=== PATIENT | female | born 1995 | race Two or more races ===

== ENCOUNTER 2025-04-01 13:41 | Inpatient (IN) | payer SELFPAY ==
[2025-04-01] VITALS (33 sets, daily range): BP systolic 108–121; BP diastolic 67–83; PULSE 93–224; RESP 14–18; TEMP 36.6–37.4; O2SAT 80–100; BMI 29.2
[2025-04-01] MEDS: Oxytocin 15 Units/NS 250ml 15 UNITS/250 ML IV.SOLN 83 UNITS IV (14:05)
[2025-04-01] MEDS: Lidocaine 1% (20 ml mdv) 20 ML Vial INFILT (14:46)
--- NOTE | 2025-04-01 14:51 | PCM.HP.OB ---
HPI - General General Date of Admission: 04/01/25 Date of Service: 04/01/25 Chief Complaint: Term intrauterine and advanced labor desires pain medication HPI Narrative LONI DEVI, is a 29 F [id number] who presents by squad from home. Patient has been cared for by a relay man and is 41 weeks 4 days gestation and has been pushing for about 4 hours. Meconium stained fluid is noted. Patient indicates that her care has been uneventful to this point. Maternal Data Information Final DEISY: 03/21/25 Gestational age: 41 weeks 4 days PFSH PFSH Home Medications ?Medication ?Instructions ?Recorded ?Last Taken ?Type vit no.95-ferrous 1 tab PO DAILY 04/01/25 03/30/25 08:00 History fumarate 28 mg-folic acid 800 mcg 1 TAB tablet () Allergy/AdvReac Type Severity Reaction Status Date / Time No Known Allergies Allergy Verified 04/01/25 14:27 no surgical history Vital Signs Vital Signs Vital Signs: 04/01/25 14:17 04/01/25 14:17 04/01/25 14:17 Pulse Rate 104 H Blood Pressure 116/73 BP Systolic 116 BP Diastolic 73 Pulse Ox 97 04/01/25 14:25 04/01/25 14:25 04/01/25 14:26 Pulse Rate 224 H 103 H Blood Pressure BP Systolic BP Diastolic Pulse Ox 80 04/01/25 14:26 04/01/25 14:31 04/01/25 14:31 Pulse Rate 111 H Blood Pressure 116/72 BP Systolic 116 BP Diastolic 72 Pulse Ox 100 04/01/25 14:31 04/01/25 14:36 04/01/25 14:36 Pulse Rate 101 H Blood Pressure BP Systolic BP Diastolic Pulse Ox 99 100 04/01/25 14:41 04/01/25 14:41 04/01/25 14:46 Pulse Rate 106 H 101 H Blood Pressure BP Systolic BP Diastolic Pulse Ox 98 04/01/25 14:46 04/01/25 14:47 04/01/25 14:47 Pulse Rate 101 H Blood Pressure 121/73 H BP Systolic 121 BP Diastolic 73 Pulse Ox 98 Weight Weight: 170 lb Body Mass Index (BMI) 29.2 Physical Exam Const oriented x3 Constitutional Narrative: Patient in active labor. General Appearance: cooperative Exam Limitations: no limitations HEENT normocephalic Neck full ROM Resp normal respiratory effort and no retractions Cardio regular rate GI non-tender and non-distended Narrative: Size appears appropriate for gestational age Manual OB Exam: estimated gestational size, presentation cephalic and dilated Complete Uterus Palpation: uterus fundus Skin no rashes or lesions noted Neuro moves all extremities Labs Labs Labs: No Data to Display Patient indicates she has A positive Assessment & Plan (1) Prolonged third stage of labor: PLAN: Plan Patient presented by squad and delivered approximately 10 minutes after arriving on labor delivery. Minimal care. Will draw balance of labs. See delivery note.
--- NOTE | 2025-04-01 15:03 | OB.VAGDELI_ITS ---
Vaginal Delivery Maternal Presentation Maternal Presentation: Active Labor Maternal Presentation: Presented by squad with a drafter automotive design layout from home. She had been pushing for about 4 hours and was requesting pain medication. Vaginal Delivery Information Procedure Performed: Spontaneous Vaginal Delivery Surgeon/Practitioner: Haider Diaz Date of Procedure: 04/01/25 Pre-Procedure Diagnosis: IUP, Prolonged Third Stage of Labor Post-Procedure Diagnosis: IUP, Prolonged Third Stage of Labor Type of anesthesia: Local with 1% Lidocaine Special Medications: IM and IV pitocin, Methergine after delivery Estimated Blood Loss: 250 cc Time of Delivery: 13:56 Findings Description of procedure: Spontaneous vaginal delivery of a viable male with Apgars of 7/9 from an occiput anterior presentation with thick meconium fluid and normal meconium stained three-vessel placenta. Cord entanglement noted with the cord tightly stretched over the shoulders and between the legs. No episiotomy. First-degree midline laceration repaired with 3-0 Rapide suture under local. Cord gases collected. Pediatrics present for delivery (Dr. Silverman). Delivery physician: Haider Diaz MD. Procedure findings: Viable male infant with Apgars of 7/9 from an occiput anterior presentation with thick meconium fluid and normal meconium stained three-vessel placenta. Presentation: Vertex Amniotic Membrane Rupture Type: Spontaneous Amniotic Fluid Description: Thick meconium Placental Delivery Description: Spontaneous Placenta Disposition: [facility] Specimen collected: Yes Description of specimen(s) removed: Placenta to [facility] Cord Vessel Description: 3 Vessels Cord Entanglement: Other (Entangled around shoulder and between legs tight) Nuchal Cord Compression: With compression Cord Gases: ABG and VBG Infant A Gender: Male (1 minute): 7 (5 minute): 9 Post Vaginal Deli Medications given after delivery: IV Pitocin, IM Pitocin and IM Methergin Episiotomy Description: None Laceration: Midline and 1st degree Complication Complications: No
[2025-04-01 16:53] LABS: Hematocrit 40.1 % (37-47); Hemoglobin 14.0 g/dL (12.0-15.0); Immature Granulocytes Count 0.170 X10^3/uL (0.0-0.0); Mean Corp Hgb Conc 34.9 g/dL (32-36); Mean Corpuscular Volume 86.4 fL (81-99); Mean Platelet Vol. 10.7 fl (6.2-12.0); NRBC Flagged by Analyzer 0 % (0-5); POSITIVE DIFFERENTIAL YES; Platelet Count 179 K/mm3 (150-450); RBC Distribution Width CV 14.1 % (11.6-14.6); RBC Distribution Width SD 44.3 fl (35.1-43.9); Red Blood Count 4.64 M/mm3 (4.2-5.4); White Blood Count 23.5 K/mm3 (4.4-11.0)
[2025-04-01 17:08] LABS: Differential Indicated SCAN CRITERIA MET
[2025-04-01 17:21] LABS: AST(SGOT) 53 U/L (<=31); Alanine Aminotransfer ALT/SGPT 13 U/L (<=34); Albumin, Serum 3.7 g/dL (3.5-5.0); Alkaline Phosphatase 129 U/L (35-104); Anion Gap 16 (5-15); BUN 9 mg/dL (4-19); BUN/Creat Ratio 14.9 RATIO (10-20); Calcium,Total 9.1 mg/dL (7.6-11.0); Carbon Dioxide 13.5 mmol/L (21.0-32.0); Chloride 101 mmol/L (98-108); Estimated Creatinine Clearance 146.36 ml/min (50-250); Globulin 2.8 g/dL (2.2-4.2); Glucose 152 mg/dL (70-99); Potassium 3.7 mmol/L (3.3-5.1)
[2025-04-01 20:08] LABS: Differential Comment SCANNED
[2025-04-02 01:10] VITALS: BP 110/79; PULSE 109; RESP 16; TEMP 36.6; O2SAT 99
[2025-04-02 04:30] VITALS: BP 106/79; PULSE 99; RESP 16; TEMP 36.8; O2SAT 98
[2025-04-02 06:07] LABS: Hematocrit 36.0 % (37-47); Hemoglobin 12.3 g/dL (12.0-15.0); Immature Granulocytes Count 0.080 X10^3/uL (0.0-0.0); Mean Corp Hgb Conc 34.2 g/dL (32-36); Mean Corpuscular Volume 87.6 fL (81-99); Mean Platelet Vol. 10.8 fl (6.2-12.0); NRBC Flagged by Analyzer 0 % (0-5); Platelet Count 156 K/mm3 (150-450); RBC Distribution Width CV 14.4 % (11.6-14.6); RBC Distribution Width SD 46.2 fl (35.1-43.9); Red Blood Count 4.11 M/mm3 (4.2-5.4); White Blood Count 16.0 K/mm3 (4.4-11.0)
[2025-04-02] MEDS: Senna/Docusate Sodium 1 Tablet PO (09:25)
--- NOTE | 2025-04-02 11:58 | DS.PCM_ITS ---
Providers Date of Admission: 04/01/25 Date of Discharge: 04/02/25 Reason For Visit: LABOR AND DELIVERY Diagnosis Discharge Diagnosis (1) Prolonged third stage of labor: Status: Acute Code(s): O63.9 - Long labor, unspecified Plan: Doing well day #1 without complaints. Minimal vaginal bleeding reported. No fevers. White count decreased from 23.5 to approximately 16. Breast-feeding going well. Wants to go home today. Medications at Discharge Home Medications vit no.95-ferrous fumarate 28 mg-folic acid 800 mcg tablet () 1 tab PO DAILY 04/01/25 Hospital Course Summary of Care Provided Hospital Course: Patient arrived by squad with display maker. The patient had been in labor for approximately 3 days, had been complete for 7 to 8 hours and had pushed for more than 4 hours and was requesting pain medication. She was admitted and almost immediately had a routine spontaneous vaginal delivery. the patient did well demonstrating a stable hemoglobin and diminishing white count. Pediatrics okay with baby going home after 24 hours. Weight / BMI Weight Weight: 170 lb Body Mass Index (BMI) 29.2 ABG / Lab / Microbiology Data 04/02/25 05:45 04/01/25 16:30 Laboratory: Laboratory Results - last 24 hr 04/01/25 16:30: WBC 23.5 H, RBC 4.64, Hgb 14.0, Hct 40.1, MCV 86.4, MCH 30.2, MCHC 34.9, RDW Std Deviation 44.3 H, RDW Coeff of Rae 14.1, Plt Count 179, MPV 10.7, Immature Gran % (Auto) 0.700, Neut % (Auto) 91.3 H, Lymph % (Auto) 4.0 L, Gaston % (Auto) 3.9, Eos % (Auto) 0.0, Baso % (Auto) 0.1, Absolute Neuts (auto) 21.5 H, Absolute Lymphs (auto) 0.93, Nucleated RBC % 0, Differential Comment SCANNED, Platelet Estimate ADEQUATE, Sodium 131 L, Potassium 3.7, Chloride 101, Carbon Dioxide 13.5 L, Anion Gap 16 H, BUN 9, Creatinine 0.57 L, Estim Creat Clear Calc 146.36, Est GFR (MDRD) Non-Af 126, BUN/Creatinine Ratio 14.9, Glucose 152 H, Calcium 9.1, Total Bilirubin 0.54, AST 53 H, ALT 13, Alkaline Phosphatase 129 H, Total Protein 6.5, Albumin 3.7, Globulin 2.8, Albumin/Globulin Ratio 1.3, Blood Type A POSITIVE, Antibody Screen NEGATIVE 04/02/25 05:45: WBC 16.0 H, RBC 4.11 L, Hgb 12.3, Hct 36.0 L, MCV 87.6, MCH 29.9, MCHC 34.2, RDW Std Deviation 46.2 H, RDW Coeff of Rae 14.4, Plt Count 156, MPV 10.8, Immature Gran % (Auto) 0.500, Neut % (Auto) 85.4 H, Lymph % (Auto) 7.9 L, Gaston % (Auto) 6.0, Eos % (Auto) 0.1, Baso % (Auto) 0.1, Absolute Neuts (auto) 13.7 H, Absolute Lymphs (auto) 1.26, Nucleated RBC % 0 D/C Instructions Discharge Activity: Return to Normal Activity, May Shower and May Take a Tub Bath May resume sexual activity in: 4-6 weeks Call your doctor if your incision/area has: Increased Pain/ Swelling and Foul Smelling Discharge Call your doctor if you observe: Fever of 101 or Higher, Inability to urinate, Inability to have a bowel movement and Using more than 1 pad per hour DC O2, CPAP, BIPAP Needs Home O2 Discharge instructions: No DC home with Oxygen: No Please Follow Up With: Amee Goins CNM When: in 6 weeks or with your communicable disease specialist Meaningful Use Info Meaningful Use Meaningful Use Diagnoses (Choose all that apply): None applicable Discharge Plan Admission Admit Date/Time: 04/01/25 13:41 Primary Reason for Your Visit: Prolonged Second Stage of Labor Attending Provider: Haider Diaz Discharge Orders/Prescriptions Prescriptions: No Action PNV cmb#95-ferrous fumarate-FA [] 28 mg iron- 800 mcg tablet 1 tab PO DAILY Disposition Disposition (needs filled in before D/C Order can be placed): Home, Self Care
[2025-04-02 12:06] VITALS: BP 115/71; PULSE 106; RESP 14; O2SAT 95
[2025-04-02 17:05] VITALS: BP 123/89; PULSE 101; RESP 14; O2SAT 95
== END 2025-04-02 17:30 | disposition home or self-care (01) | DRG 807 ==
PROVIDERS: Admitting Provider Obstetrics & Gynecology; Referring Provider Obstetrics & Gynecology; Visit Provider Obstetrics & Gynecology
DX: O48.0 Post-term pregnancy (principal); Z37.0 Single live birth; O69.2XX0 Labor and delivery complicated by other cord entanglement, with compression, not applicable or unspecified; O70.0 First degree perineal laceration during delivery; O77.0 Labor and delivery complicated by meconium in amniotic fluid; Z3A.41 41 weeks gestation of pregnancy
CPT/HCPCS: 59050; 80053; 85025; 86850; 86900; 86901; 99221; G0378

== ENCOUNTER → 2025-05-14 | Outpatient (CLI) | payer SELFPAY ==
[2025-05-14 16:54] LABS: Hematocrit 40.6 % (37-47); Hemoglobin 13.4 g/dL (12.0-15.0); Immature Granulocytes Count 0.010 X10^3/uL (0.0-0.0); Mean Corp Hgb Conc 33.0 g/dL (32-36); Mean Corpuscular Volume 89.8 fL (81-99); Mean Platelet Vol. 9.6 fl (6.2-12.0); NRBC Flagged by Analyzer 0 % (0-5); Platelet Count 215 K/mm3 (150-450); RBC Distribution Width CV 12.7 % (11.6-14.6); RBC Distribution Width SD 42.5 fl (35.1-43.9); Red Blood Count 4.52 M/mm3 (4.2-5.4); White Blood Count 6.6 K/mm3 (4.4-11.0)
[2025-05-14 17:13] LABS: AST(SGOT) 17 U/L (<=31); Alanine Aminotransfer ALT/SGPT 8 U/L (<=34); Albumin, Serum 4.4 g/dL (3.5-5.0); Alkaline Phosphatase 64 U/L (35-104); Anion Gap 12 (5-15); BUN 20 mg/dL (4-19); BUN/Creat Ratio 21.2 RATIO (10-20); Calcium,Total 8.8 mg/dL (7.6-11.0); Carbon Dioxide 23.6 mmol/L (21.0-32.0); Chloride 104 mmol/L (98-108); Globulin 2.3 g/dL (2.2-4.2); Glucose 101 mg/dL (70-99); Potassium 4.1 mmol/L (3.3-5.1)
== END | disposition home or self-care (01) ==
PROVIDERS: Referring Provider Obstetrics & Gynecology; Visit Provider Obstetrics & Gynecology
DX: Z12.4 Encounter for screening for malignant neoplasm of cervix (principal); R74.8 Abnormal levels of other serum enzymes
CPT/HCPCS: 36415; 80053; 85025; 88175; G0145